=== PATIENT | female | born 1960 | race Caucasian/White ===

== ENCOUNTER 2020-09-06 21:41 | Emergency (ER) | payer MEDICARE, OTHER ==
[~2020-09-06 21:41] MED LIST: FLEXERIL 10 MG10 MG PO; LODINE CAP 300300 MG PO; NAPROSYN EC 37375 MG PO; PREDNISONE20 MG PO; VIBRAMYCIN100 MG PO; Voltaren Gel 1 % TOP
[2020-09-06 23:25] LABS: HEMOGLOBIN 16.4 gm/dl (12.3-15.3); RED BLOOD COUNT 5.14 M/UL (4.00-5.10); WHITE BLOOD COUNT 13.3 K/UL (4.5-11.0)
[2020-09-06 23:48] LABS: BUN/CREATININE RATIO 17 (0-10)
[2020-09-07] MEDS ORDERED: IBUPROFEN600 MG PO (01:37)
[2020-09-07] MEDS ORDERED: Flexeril PO (01:37)
== END 2020-09-07 01:43 | disposition home or self-care (01) ==
LOC: ER1 21:41
PROVIDERS: Physician Assistant Medical
DX: R07.89 Other chest pain (principal); R91.1 Solitary pulmonary nodule; Z90.710 Acquired absence of both cervix and uterus; Z90.89 Acquired absence of other organs; Z88.5 Allergy status to narcotic agent; Z88.8 Allergy status to other drugs, medicaments and biological substances
CPT/HCPCS: 71046; 71111; 80053; 82550; 82553; 83874; 84484; 85025; 85379; 93005; 99285

== ENCOUNTER → 2020-09-30 | Outpatient (CLI) | payer MEDICARE, OTHER ==
[~2020-09-30] MED LIST changes: +Flexeril PO; +IBUPROFEN600 MG PO
== END ==
LOC: CT 09-27 08:30
DX: J43.2 Centrilobular emphysema (principal); Z90.2 Acquired absence of lung [part of]; J98.4 Other disorders of lung
CPT/HCPCS: 71260; Q9967

== ENCOUNTER 2021-02-04 20:13 | Emergency (ER) | payer MEDICARE, OTHER ==
[2021-02-04 22:00] LABS: HEMOGLOBIN 16.4 gm/dl (12.3-15.3); RED BLOOD COUNT 5.23 M/UL (4.00-5.10); WHITE BLOOD COUNT 7.9 K/UL (4.5-11.0)
[2021-02-04 22:17] LABS: BUN/CREATININE RATIO 11 (0-10)
[2021-02-04] MEDS ORDERED: AZITHROMYCIN500 MG PO (23:46)
[2021-02-04] MEDS ORDERED: PREDNISONE 20 M20 MG PO (23:47)
[2021-02-04] MEDS ORDERED: TESSALON PERLE100 MG PO (23:47)
[2021-02-04] MEDS ORDERED: PROVENTIL HFA6.7 GM INH (23:47)
== END 2021-02-05 | disposition home or self-care (01) ==
LOC: ER1 20:13
PROVIDERS: Physician Assistant Medical
DX: U07.1 COVID-19 (principal); J44.1 Chronic obstructive pulmonary disease with (acute) exacerbation; I10 Essential (primary) hypertension; Z90.710 Acquired absence of both cervix and uterus; Z90.49 Acquired absence of other specified parts of digestive tract; Z90.89 Acquired absence of other organs; Z88.1 Allergy status to other antibiotic agents; Z79.899 Other long term (current) drug therapy
CPT/HCPCS: 71045; 80053; 85025; 99285; U0003

== ENCOUNTER 2021-02-19 07:49 | Emergency (ER) | payer MEDICARE ==
[~2021-02-19 07:49] MED LIST changes: +AZITHROMYCIN500 MG PO; +PREDNISONE 20 M20 MG PO; +PROVENTIL HFA6.7 GM INH; +TESSALON PERLE100 MG PO
== END 2021-02-19 10:37 | disposition home or self-care (01) ==
LOC: ER1 07:49
DX: S93.491A Sprain of other ligament of right ankle, initial encounter (principal); S50.11XA Contusion of right forearm, initial encounter; W22.8XXA Striking against or struck by other objects, initial encounter; Y92.009 Unspecified place in unspecified non-institutional (private) residence as the place of occurrence of the external cause
CPT/HCPCS: 73090; 73630; 99283

== ENCOUNTER 2022-01-19 14:57 | Emergency (ER) | payer MEDICARE | END 2022-01-19 19:00 | disposition home or self-care (01) | LOC: ER1 14:57 | DX: G95.20 Unspecified cord compression (principal); M54.50 Low back pain, unspecified; G89.29 Other chronic pain; F11.20 Opioid dependence, uncomplicated; J44.9 Chronic obstructive pulmonary disease, unspecified; I10 Essential (primary) hypertension; Z85.118 Personal history of other malignant neoplasm of bronchus and lung; Z88.1 Allergy status to other antibiotic agents | CPT/HCPCS: 72072; 72128; 99284 ==